=== PATIENT | male | born 1965 | race Hispanic/Latino ===

== ENCOUNTER 2019-05-08 11:00 | Observation (INO) | payer MEDICAID ==
[~2019-05-08] VITALS: Ht 193 cm; Wt 108.9 kg
[2019-05-08 11:58] LABS: APPEARANCE,URINE CLEAR (CLEAR); BILIRUBIN,URINE NEGATIVE (NEGATIVE); COLOR,URINE YELLOW (YELLOW); GLUCOSE, URINE (UA) 100 mg/dL (NEGATIVE); KETONES,URINE 5 mg/dL (NEGATIVE); LEUKOCYTE ESTERASE ,URINE NEGATIVE (NEGATIVE); NITRATE,URINE NEGATIVE (NEGATIVE); OCCULT BLOOD,URINE NEGATIVE (NEGATIVE); PH,URINE 5.5 (5.0-8.0); PROTEIN,URINE TRACE mg/dL (NEGATIVE)
[2019-05-08 11:59] VITALS: BP 148/74
[2019-05-08 12:09] LABS: BACTERIA,URINE Rare /HPF (None Seen); MUCUS,URINE Rare LPF (None Seen); RBC,URINE 0-1 /HPF (0-1); SQUAMOUS EPITHELIAL CELL,UR Rare /HPF (0-2)
[2019-05-08] MEDS ORDERED: METF-446 PO (12:21)
[2019-05-08] MEDS ORDERED: BUDE10.2 IH (12:26)
[2019-05-08] MEDS ORDERED: ASPI-555 PO (12:26)
[2019-05-08] MEDS ORDERED: INSU100V12 SQ (12:26)
[2019-05-08] MEDS ORDERED: IBUP-2071 PO (12:26)
[2019-05-08] MEDS ORDERED: ATOR20TA65 PO (12:26)
[2019-05-08] MEDS ORDERED: LINA5TAB PO (12:26)
[2019-05-08] MEDS: CEFAZOLIN SODIUM 1 GM VIAL IVP SCH (12:45)
[2019-05-09] VITALS (16 sets, daily range): BP systolic 132–181; BP diastolic 76–103
[2019-05-09] MEDS ORDERED: CEFAZOLIN 3GM /D5W 100ML 100 ML IV ONE (02:00)
[2019-05-09] MEDS ORDERED: SODIUM CHLORIDE 0.9% 1000ML 1,000 ML IV ONE (10:13)
[2019-05-09] MEDS ORDERED: LIDOCAINE PF 2% 5ML ABBOJECT ONE ×2 (11:09→13:47)
[2019-05-09] MEDS ORDERED: SUCCINYLCHOLINE 200MG/10ML SYR ONE (11:09)
[2019-05-09] MEDS ORDERED: PROPOFOL 10 MG/ML 20ML VIAL IV ONE (11:09)
[2019-05-09] MEDS ORDERED: FENTANYL CITRATE PF 50 MCG/1 ML 2ML VIAL ONE ×2 (11:09→14:22)
[2019-05-09] MEDS ORDERED: ROCURONIUM 10MG/1ML SYR 10 MG/ML ML ONE ×2 (11:09→12:43)
[2019-05-09] MEDS ORDERED: ROPIVACAINE 0.5% 5MG/ML 30ML IJ ONE (11:11)
[2019-05-09] MEDS ORDERED: SUCCINYLCHOLINE CHLORIDE 20 MG/ML 10 ML VIAL ONE (11:11)
[2019-05-09] MEDS ORDERED: EPHEDRINE SULFATE 50 MG/ML AMPULE ONE (12:19)
[2019-05-09] MEDS: CEFAZOLIN SODIUM 1 GM VIAL IVP SCH ×2 (12:30→12:45)
[2019-05-09] MEDS ORDERED: SODIUM CHLORIDE 0.9% 10 ML VIAL ONE (12:37)
[2019-05-09] MEDS ORDERED: PHENYLEPHRINE HCL 10 MG/ML 1ML VIAL IV ONE (12:37)
[2019-05-09] MEDS ORDERED: NEOSTIGMINE 5MG/5ML SYR IV ONE (13:43)
[2019-05-09] MEDS ORDERED: GLYCOPYRROLATE 1 MG/5 ML SYRINGE ONE (13:43)
[2019-05-09] MEDS ORDERED: ONDANSETRON HCL 4 MG/2 ML VIAL ONE (13:44)
[2019-05-09] MEDS ORDERED: KETOROLAC TROMETHAMINE 30MG/ML ONE (13:44)
[2019-05-09] MEDS ORDERED: MEPERIDINE-PF 25 MG/ML SYG ONE (14:06)
[2019-05-09 15:26] LABS: HEMATOCRIT 43.1 % (42-54)
[2019-05-09] MEDS ORDERED: MORPHINE SULFATE 5 MG/ML VIAL IM PRN (16:30)
[2019-05-09] MEDS ORDERED: PROMETHAZINE HCL 25 MG/ML 1ML AMPULE IM PRN (16:30)
[2019-05-09] MEDS ORDERED: MAGNESIUM HYDROXIDE 30 ML/UDCUP PO PRN (16:30)
[2019-05-09] MEDS ORDERED: BISACODYL 10 MG SUPP.RECT RC PRN (16:30)
--- NOTE | 2019-05-09 17:29 | NUR ---
DCP CM met with pt discussed dc plans. Pt is independent prior to surgery, lives at home with spouse. Denies any equipments/services. Pt feels safe to go back home, spouse able to assist with transportation and needs as necessary. DC plan to home once stable. CM to cont to follow up. Addendum: 05/09/19 at 1730 by JENNY CABRAL LVN CM Amended: Links added.
[2019-05-09] MEDS ORDERED: CEFAZOLIN SODIUM 1 GM VIAL IVP SCH (18:00)
[2019-05-09 18:29] LABS: HEMATOCRIT 43.6 % (42-54)
[2019-05-09] MEDS ORDERED: HYDROCODONE/ACETAMINOPHEN 5/325 MG TAB PO PRN (20:30)
[2019-05-09] MEDS ORDERED: ONDANSETRON HCL 4 MG/2 ML VIAL IV PRN (20:30)
[2019-05-09] MEDS ORDERED: GLUCAGON 1MG KIT 1 MG ML IM PRN (20:30)
[2019-05-09] MEDS ORDERED: IBUPROFEN 800 MG TAB PO PRN (20:30)
[2019-05-09] MEDS ORDERED: ACETAMINOPHEN 325 MG TAB PO PRN ×2 (20:30)
[2019-05-09] MEDS ORDERED: DEXTROSE 50%-WATER 50 ML DISP.SYRIN IV PRN (20:30)
[2019-05-09] MEDS ORDERED: NITROGLYCERIN 0.4 MG SL TAB SL PRN (20:30)
[2019-05-09] MEDS: SYMBICORT 160-4.5 MCG INHALER IH SCH (21:00)
[2019-05-09] MEDS ORDERED: IPRATROPIUM/ALBUTEROL SULFATE 3 ML SOLUTION IH PRN (22:15)
[2019-05-09] MEDS: FAMOTIDINE 20MG TAB 20 MG TAB PO SCH (22:24)
[2019-05-09] MEDS: METFORMIN HCL 500 MG TABLET PO SCH (22:25)
[2019-05-09] MEDS: INSULIN HUMULIN R 100 UNIT/ML 3ML SQ SCH (22:31)
[2019-05-10] VITALS: BP 142/71
[2019-05-10 00:48] LABS: HEMATOCRIT 42.6 % (42-54)
[2019-05-10] MEDS: CEFAZOLIN 3GM /D5W 100ML 100 ML IV SCH ×2 (02:00→11:09)
[2019-05-10 04:00] VITALS: BP 128/65
[2019-05-10] MEDS: HYDROCODONE/ACETAMINOPHEN 5/325 MG TAB PO PRN ×2 (05:30→11:09)
[2019-05-10] MEDS: INSULIN HUMULIN R 100 UNIT/ML 3ML SQ SCH ×2 (06:23→11:30)
[2019-05-10 06:53] LABS: BASOPHILS % (AUTO) 0.5 % (0.0-5.0); EOSINOPHILS % (AUTO) 3.6 % (0.0-8.0); HEMATOCRIT 39.5 % (42-54); LYMPHOCYTES % (AUTO) 21.6 % (21.0-51.0); MEAN CORPUSCULAR HEMOGLOBIN 30.5 pg (27.0-33.0); MEAN CORPUSCULAR HGB CONC 33.5 g/dL (32.0-36.0); MEAN CORPUSCULAR VOLUME 91.1 fL (79-99); MONOCYTES % (AUTO) 8.9 % (3.0-13.0); NEUTROPHILS % (AUTO) 65.4 % (40.0-77.0); PLATELET COUNT (AUTO) 211 K/uL (130-400); RED BLOOD CELL COUNT(AUTO) 4.33 MIL/uL (4.50-6.20); RED CELL DISTRIBUTION WIDTH 14.9 % (11.0-15.5); WHITE BLOOD COUNT (AUTO) 11.1 K/uL (4.8-10.8)
[2019-05-10 07:18] LABS: ALBUMIN 3.3 g/dL (3.5-5.0); BILIRUBIN,TOTAL 0.7 mg/dL (0.2-1.0); POTASSIUM 3.9 mmol/L (3.5-5.1); TOTAL PROTEIN, SERUM 6.4 g/dL (6.0-8.3)
[2019-05-10 07:30] VITALS: BP 124/68
[2019-05-10] MEDS ORDERED: INSULIN GLARGINE 100 UNITS/ML 10 ML VIAL SQ SCH (09:00)
[2019-05-10] MEDS ORDERED: ASPIRIN 81MG TAB.CHEW PO SCH (09:00)
[2019-05-10] MEDS: SYMBICORT 160-4.5 MCG INHALER IH SCH (09:00)
[2019-05-10] MEDS ORDERED: LINAGLIPTIN 5 MG TABLET PO SCH (09:00)
[2019-05-10] MEDS: METFORMIN HCL 500 MG TABLET PO SCH (09:11)
[2019-05-10] MEDS: FAMOTIDINE 20MG TAB 20 MG TAB PO SCH (09:12)
[2019-05-10 11:00] VITALS: BP 145/77
[2019-05-10] MEDS ORDERED: ATORVASTATIN CALCIUM 20 MG TABLET PO SCH (21:00)
== END 2019-05-10 16:59 | disposition home or self-care (01) ==
LOC: DAHIP 05-09 09:36 → EDBD 05-09 11:00 → EDSTATUS 05-09 11:00 → 4CH 05-09 15:08
DX: M75.41 Impingement syndrome of right shoulder (principal); M75.121 Complete rotator cuff tear or rupture of right shoulder, not specified as traumatic; M19.011 Primary osteoarthritis, right shoulder; E11.40 Type 2 diabetes mellitus with diabetic neuropathy, unspecified; E11.319 Type 2 diabetes mellitus with unspecified diabetic retinopathy without macular edema; E11.51 Type 2 diabetes mellitus with diabetic peripheral angiopathy without gangrene; E78.00 Pure hypercholesterolemia, unspecified; E78.5 Hyperlipidemia, unspecified; I10 Essential (primary) hypertension; J44.9 Chronic obstructive pulmonary disease, unspecified; Z79.4 Long term (current) use of insulin; Z83.3 Family history of diabetes mellitus; Z91.19 Patient's noncompliance with other medical treatment and regimen; Z79.899 Other long term (current) drug therapy
CPT/HCPCS: 23120; 23130; 23412; 23415; 36415 ×2; 80053; 81001; 82948 ×5; 85014 ×3; 85018 ×3; 85025; 88304; 88311; 94664; 94760; 96365; 96366; 96372 ×2; 96375; 97039; 97116 ×2; 97161; A4606; A4649; A4930; A6223; C1713 ×2; G0378 ×17; G8978; G8979; G8980; G8981; G8982; G8983; J0330; J0690 ×6; J1815 ×2; J1885; J2001 ×2; J2175; J2270; J2370; J2405; J2550; J2704; J2710; J2795; J3010 ×2; J3490 ×2; J7030 ×2